=== PATIENT | female | born 1980 | race Caucasian/White ===

== ENCOUNTER 2021-09-22 10:34 | Outpatient (CLI) | payer BC, SELFPAY ==
[2021-09-22 11:17] LABS: Hematocrit 33.8 % (37.0-47.0); Hemoglobin 10.7 g/dL (12.0-15.0); Mean Corpuscular HGB Conc 31.7 g/dl (32-36); Mean Corpuscular Volume 85.1 fl (80-100); Mean Platelet Volume 10.2 fl (7.4-10.4); Platelet Count Result 287 k/mm3 (150-375); Red Blood Count 3.97 M/mm3 (4.2-5.4); White Blood Count 4.6 K/mm3 (4.5-10.0)
== END 2021-09-22 10:35 | disposition home or self-care (01) ==
LOC: ANHSURGERY 10:41
PROVIDERS: PCP Nurse Practitioner Family; Visit Provider Obstetrics & Gynecology
DX: R58 Hemorrhage, not elsewhere classified (principal); Z01.818 Encounter for other preprocedural examination
CPT/HCPCS: 36415; 85027; 86850; 86900; 86901

== ENCOUNTER 2021-09-24 01:24 | Day surgery (SDC) | payer BC, SELFPAY ==
[2021-09-18 17:13] VITALS: BMI 27.4
--- NOTE | 2021-09-18 17:31 | PC.NURSE ---
Report to the Outpatient Waiting Room, entrance under the green pavilion located off [facility], at time 0800 on date 09/24/2021. OR Time: 1000. - You and your visitor will be asked a series of questions to screen for COVID 19 for your protection. - Only one visitor is allowed at this time. - The patient visitor is requested to leave or wait in car when not with patient. - A mask is required within the hospital. Patients may have clear liquids (water, clear carbonated beverages, clear teas, apple juice) until 3 hours prior to surgery with a maximum of 20 ounces. - No food from midnight until time of surgery. Take the following medications with a SIP of water the morning of surgery: Vyvanase. Medications to discontinue per physician __n/a_ Date to take last dose __n/a_ Please no make-up, nail bengali, hair products, perfume, deodorant, or body lotions or powder the day of surgery. No jewelry (including any body piercings) or valuables the day of surgery, leave them at home. Please take a shower or bath the night before, or the morning of, surgery with an antibacterial soap. Wear comfortable, loose fitting clothing. - Jewelry must be removed prior to entering the operating room. Rings and piercings that are not removed may be cut off. - The hospital will not accept responsibility for valuables. - Please leave all valuables, including medications, at home the day of surgery. May bring overnight bag for hospital stay. If you are going home after surgery, a licensed wedding transportation driver must drive you home. - NO public transportation without another adult. - We recommend that an adult stay with you for 24 hours following discharge. - We also recommend that you do not drive, make important decision, drink alcoholic beverages, or take any drugs that were not prescribed by your health care provider for at least 24 hours after your discharge time. Follow any additional instructions given to you from your surgeon. If you or anyone in your household have experienced Covid symptoms in the past week, please notify your surgeon or the nurse liaison at the phone number below for possible testing. Telephone instructions given to patient and asked if any additional questions and then verbalized understanding. Patient advised to call surgeon office or pre surgery nurse liaison [phone] if any additional questions.
--- NOTE | 2021-09-23 04:46 | PM.IMHP ---
H&P: HPI History of Present Illness Date/Time: 09/23/21 04:46 Chief Complaint: Bleeding and pelvic pain with enlarged uterus Narrative: This is a 41-year-old female admitted for hysterectomy robotically and bilateral salpingectomy. She has known enlarged uterus with fibroids by ultrasound and desires permanent repair. Risks and benefits reviewed including exclusive of , aspiration pneumonia, bleeding, transfusion, perforation injury to, bladder, ureters, or other internal organs with need for laparotomy. She received the [employer] handout entitled hysterectomy as well as de [place]ry handout. She had all questions answered asked to proceed [facility] Social History Social History Smoking status: Former smoker Second hand tobacco smoke exposure: No Smoking end date: 12/13/05 Additional smoking assessment comments: 1PPDX 13 YRS Alcohol intake: former Alcohol use details: RECOVERED ALCHOLIC SINCE 2005 Substance use: former Other substance usage details: RECOVERED METHAMPHETAMINE ADDICT SINCE 2005 Spiritual care concerns: No Meds Home Medications and Allergies Home Medications Medication Instructions Recorded Confirmed Type lisdexamfetamine 70 mg capsule 70 mg PO DAILY 09/18/21 09/18/21 History (Vyvanse) tranexamic acid 650 mg tablet 650 mg PO USEASDIRECTD 09/18/21 09/18/21 History trazodone 100 mg tablet 100 mg PO HS 09/18/21 09/18/21 History Allergies Allergy/AdvReac Type Severity Reaction Status Date / Time No Known Allergies Allergy Verified 09/18/21 17:08 Exam GI: Auscultation: normal bowel sounds : External Female Exam: normal external appearance Speculum Exam - Vagina: normal appearance of the vagina and vaginal bleeding Speculum Exam - Cervix: normal appearance of the cervix Bimanual exam- vagina & uterus: enlarged Bimanual Exam- Adnexa, other: normal adnexae Assessment and Plan Assessment and plan (1) Excessive bleeding: Code(s): R58 - Hemorrhage, not elsewhere classified Status: Acute (2) Anemia: Code(s): D64.9 - Anemia, unspecified Status: Acute (3) Uterine fibroid: Code(s): D25.9 - Leiomyoma of uterus, unspecified Status: Acute (4) Dyspareunia: Status: Acute Plan Robotic total vaginal hysterectomy. Bilateral salpingectomy we undertaken if indeed she does have tubes
--- NOTE | 2021-09-23 13:23 | WPDANESEPPF ---
Anes - Initial Pre Proc Eval Procedure: Operation Date: 09/24/21 10:00 Proposed Procedures p Robotic Assisted Total Vaginal Hysterectomy - Eric William MD Date/Time: 09/23/21 13:23 Surgeon: Eric William MD Pre Op Diagnosis: excessive bleeding, anemia Patient Data Age: 41 Gender: F Height: 1.63 m Weight: 72.57 kg Allergies Allergy/AdvReac Type Severity Reaction Status Date / Time No Known Allergies Allergy Verified 09/24/21 08:16 Home Medications Medication Instructions Recorded Confirmed Type lisdexamfetamine 70 mg capsule 70 mg PO DAILY 09/18/21 09/24/21 History (Vyvanse) tranexamic acid 650 mg tablet 650 mg PO USEASDIRECTD 09/18/21 09/24/21 History trazodone 100 mg tablet 100 mg PO HS 09/18/21 09/24/21 History hydrocodone 5 mg-acetaminophen 325 1 tablet PO Q4H PRN pain #30 tabs 09/24/21 Rx mg tablet Patient hx anesthesia problems: none Family hx anesthesia problems: none Results Review: All pre-operative results and documents have been reviewed as part of the pre-operative evaluation. [facility] Past Medical History Medical History (Updated 09/24/21 @ 06:35 by Eric William MD) ADHD Anxiety Depression Fibroid History of gastric ulcer PTSD (post-traumatic stress disorder) Surgical History Surgical History (Updated 09/23/21 @ 13:24 by Omega Pyle DO) History of tubal ligation Social History Social History Smoking status: Former smoker Second hand tobacco smoke exposure: No Smoking end date: 12/13/05 Additional smoking assessment comments: 1PPDX 13 YRS Alcohol intake: former Alcohol use details: RECOVERED ALCHOLIC SINCE 2005 Substance use: former Other substance usage details: RECOVERED METHAMPHETAMINE ADDICT SINCE 2005 Living arrangements: with family Spiritual care concerns: No Anes - Eval Final PreProcedure Day of Procedure 09/23/21 13:23 Patient weight: overweight Heart: regular rate and rhythm Lungs: clear to auscultation Airway: Mallampati scale class II Neurological: alert and oriented Last oral intake: >/= 8 hours ASA classification: III Emergent: no Anesthetic plan: proceed Anesthesia type and monitoring: general ETT and standard monitoring Results Review: All pre-operative results and documents have been reviewed as part of the pre-operative evaluation. Informed Consent: The patient's anesthetic plan and its attendant risks and benefits were discussed with the patient/family/POA. Questions were solicited and answers provided to the satisfaction of the patient/family/POA.
[2021-09-24] VITALS (9 sets, daily range): BP systolic 93–109; BP diastolic 46–71; PULSE 50–78; RESP 8–16; TEMP 36–37; O2SAT 100
--- NOTE | 2021-09-24 06:34 | WPDHPUPDATE1 ---
History and Physical Update Update Date/Time: 09/24/21 06:34 History and Physical has been reviewed, including an updated exam of the patient. There are NO changes in the patient's condition. Risks, benefits, and alternatives have been discussed and questions answered. Patient agrees to proceed with procedure.
[2021-09-24] MEDS: ACETAMINOPHEN 500 MG TABLET 1000 MG PO (08:18)
[2021-09-24] MEDS: LACTATED RINGERS 1,000 ML 30 ML IV CONT ×2 (08:46→11:13)
[2021-09-24] MEDS: KETOROLAC 15 MG/ML VIAL (*BKC) IV PUSH (08:47)
[2021-09-24] MEDS: SCOPOLAMINE 1.5 MG PATCH TRANSDERM (09:33)
[2021-09-24] MEDS: ceFAZolin 2 GM/D5W 50 ML 2 GM/50 ML BAG IVPB (09:38)
--- NOTE | 2021-09-24 10:50 | W.PM.PROC2 ---
Procedure Note - Detailed Date of Procedure 09/24/21 Pre-op Diagnosis excessive bleeding, anemia Post-op Diagnosis Same Procedure Performed Robotic total vaginal hysterectomy and right salpingectomy Surgeon Eric William MD Anesthesia General Indications Is a 41-year-old female with excessive bleeding resulting in severe anemia Findings Mildly enlarged uterus. Absent left ovary and tube. Status post right partial salpingectomy on the right normal-appearing right ovary Description of Procedure The patient was prepped draped in normal sterile fashion placed in the dorsal lithotomy position. Under excellent general trach anesthesia weighted speculum placed posterior fornix vagina. Anterior lip of the cervix grasped with single-tooth tenaculum uterus sounded to 8cm. Serial dilatation with fragmented dilators performed. This was followed by passage of the 8. ENEIDA and the number at 3 cold cup. Next the 16 [place] catheter placed in the bladder draining clear urine. The weighted speculum and single-tooth removed. The gloves were changed. A supraumbilical incision made the Veress needle passed in the abdomen. Abdomen filled with CO2 gas [id number]. The 8mm trocar advanced in the abdomen. Downside visualized no injury seen. Patient placed in Trendelenburg and right left lateral quadrant incisions made. 8mm trocars advanced under direct visualization assuring injury. Right upper quadrant incision made the 8mm trocar advanced under direct visualization assuring no injury. The robot was docked. Attention was turned to the certified genetic counselor. The left adnexa was noted to be absent. There was a portion of right fallopian tube which was sharply dissected off of the ovarian complex and passed off through the right upper quadrant incision. The left utero ovarian ligament was clamped, burned, cut. The round ligament on the left was clamped, burned, cut. Anteriorly a bladder flap was formed by sharply dissecting the peritoneum and reflecting the bladder caudally away from the cervix and uterus to the opposite round ligament was clamped, burned, cut. The left utero-ovarian ligament was skeletonized. This was then clamped, burned, cut. The this was brought to the level of previously cut round ligament. The cardinal broad ligaments on the right were then serially skeletonized hugging the cervix and uterus clamping burning cutting until the uterine vessels could be seen on the right. These were individually clamped, burned, cut. When the uterine vessels were seen they were individually clamped burned and cut. In like fashion the cardinal broad ligaments on the left were serially skeletonized clamped, burned, cut and brought down the lateral edge of the uterus and cervix until the uterine vessels could be seen on the left. These were individually clamped, burned, cut. Excellent blanching of the uterus was seen in colpotomy incision was made. Cervix and uterus removed through the vagina. The pedicles appeared dry. Vagina was then closed with continuous running 0V lock from lateral edge to lateral edge back to the midline. Irrigation undertaken until clear and hemostasis was assured. The robot was undocked. The gas removed from the abdomen. The incisions closed with 4 Monocryl and glue. The patient was awakened and went to recovery in satisfactory condition. All sponge, needle, instrument counts were correct. There were no immediate complications Estimated Blood Loss 25 Drains No Packing No Pathology Yes Complications No immediate complications Condition Stable Disposition PACU
[2021-09-24] MEDS: fentaNYL CITRATE INJ (*CRX) 100 MCG/2 ML VIAL 25 MCG IV PUSH ×4 (11:29→12:00)
--- NOTE | 2021-09-24 12:20 | ADMGEN ---
This patient, [place], was admitted to OB 2nd Floor Room 279-00. Patient oriented to hospital policies and general routines including ID bracelet, bed and alarms, visiting hours, pain management, procedures, bathroom and other care routines, personal items, smoking policy, room service/diet, and visiting hours. Information on how to activate the Rapid Response Team has been discussed. Patient/Family are encouraged to report perceived risks to care and to ask questions if they do not understand what they are told or what they should do.
[2021-09-24] MEDS: KETOROLAC 30 MG/ML VIAL (*BKC) IV PUSH ×2 (12:56→20:32)
[2021-09-24] MEDS: DEXTROSE 5%/LACTATED RINGERS 1,000 ML 125 ML IV CONT (12:57)
[2021-09-24] MEDS: ALPRAZolam (*CRX) 0.25 MG TABLET PO (13:38)
[2021-09-24] MEDS: HYDROcodone/acetaminophen (*CRX) 5-325 MG TABLET 1 TAB PO ×2 (14:35→17:58)
[2021-09-24] MEDS: SIMETHICONE 80 MG TAB.CHEW PO (16:38)
[2021-09-24] MEDS: DOCUSATE SODIUM 100 MG CAPSULE PO (16:38)
[2021-09-24] MEDS: traZODone HCL 50 MG TABLET 200 MG PO (20:32)
[2021-09-25 00:20] VITALS: BP 100/58; PULSE 59; RESP 16; TEMP 36.8
[2021-09-25] MEDS: IBUPROFEN 600 MG TABLET PO ×2 (03:47→11:08)
[2021-09-25] MEDS: HYDROcodone/acetaminophen (*CRX) 5-325 MG TABLET 1 TAB PO ×3 (03:47→12:23)
[2021-09-25 04:00] VITALS: BP 99/59; PULSE 55; RESP 18; TEMP 37.1
[2021-09-25 05:11] LABS: Basophils Percent Auto 0.3 % (0.2-1.2); Eosinophils Percent Auto 0.3 % (0-4.4); Hematocrit 27.7 % (37.0-47.0); Immature Granulocyte Absolute 0.02 K/mm3 (0.00-0.031); Immature Granulocyte Percent A 0.3 % (0-0.5); Lymphocytes Absolute Auto 1.49 K/mm3 (0.9-3.2); Lymphocytes Percent Auto 20.3 % (18.3-44.2); Mean Corpuscular HGB Conc 32.5 g/dl (32-36); Mean Corpuscular Hemoglobin 27.5 pg (26-34); Mean Corpuscular Volume 84.7 fl (80-100); Mean Platelet Volume 11.1 fl (7.4-10.4); Monocytes Absolute Auto 0.6 K/mm3 (0.1-0.6); Monocytes Percent Auto 8.6 % (2.6-8.5); Neutrophils Absolute Auto 5.2 K/mm3 (1.3-6.7); Neutrophils Percent Auto 70.2 % (45.5-73.1); Platelet Count Result 248 k/mm3 (150-375); Red Blood Count 3.27 M/mm3 (4.2-5.4); White Blood Count 7.3 K/mm3 (4.5-10.0)
--- NOTE | 2021-09-25 06:12 | PM.GYNPNOP ---
RACE AND [employer]ORTS BOOK WRITER - A/P Assessment and plan (1) Dyspareunia: Status: Acute (2) Uterine fibroid: Code(s): D25.9 - Leiomyoma of uterus, unspecified Status: Acute (3) Anemia: Code(s): D64.9 - Anemia, unspecified Status: Acute (4) Excessive bleeding: Code(s): R58 - Hemorrhage, not elsewhere classified Status: Acute Plan home. Follow up in 2 weeks Postoperative Procedures: Procedures Operation Date: 09/24/21 10:00 Actual Procedure Side Surgeon p Robotic Assisted Total Vaginal Hysterectomy, Right Salpingectomy Eric William MD Postoperative day: 1 Time Spent With Patient Time: Total time spent is greater than 50% in coordination of care (as documented) at patient's floor/unit and/or counseling patient: Time with patient: less than 15 minutes R[employer] AND [employer]OR[employer] BOOK WRITER- PN:Subj Post-Op Subjective Date/time seen: 09/25/21 06:12 Subjective: patient reports feeling better, patient has no complaints, patient desires discharge and pain is well controlled R[employer]OR[employer] BOOK WRITER - PN: Obj Data Vital Signs Vital Signs: Vital Signs - 24 hr 09/24/21 08:27 09/24/21 11:13 09/24/21 11:25 Temperature 97.3 F L 96.8 F L Pulse Rate 67 78 52 L Respiratory Rate 16 14 9 L Blood Pressure 93/66 L 109/55 L 102/68 Pulse Oximetry 100 100 100 Oxygen Delivery Room Air Simple Face Mask Simple Face Mask Oxygen Flow Rate 8 8 09/24/21 11:40 09/24/21 11:55 09/24/21 12:08 Temperature 98.6 F Pulse Rate 54 L 53 L 50 L Respiratory Rate 10 L 11 L 8 L Blood Pressure 101/71 99/46 L 99/71 L Pulse Oximetry 100 100 100 Oxygen Delivery Room Air Room Air Room Air Oxygen Flow Rate 09/24/21 12:30 09/24/21 12:50 09/24/21 16:40 Temperature 97.8 F 98.3 F Pulse Rate 52 L 73 Respiratory Rate 16 16 Blood Pressure 101/61 101/66 Pulse Oximetry 100 100 Oxygen Delivery Room Air Oxygen Flow Rate 09/24/21 19:05 09/24/21 19:05 09/25/21 00:20 Temperature 98.6 F 98.2 F Pulse Rate 69 59 L Respiratory Rate 16 16 Blood Pressure 98/60 L 100/58 L Pulse Oximetry Oxygen Delivery Room Air Oxygen Flow Rate 09/25/21 00:20 09/25/21 04:00 09/25/21 04:00 Temperature 98.8 F Pulse Rate 55 L Respiratory Rate 18 Blood Pressure 99/59 L Pulse Oximetry Oxygen Delivery Room Air Room Air Oxygen Flow Rate Intake/Output Intake/Output: Intake & Output 09/22/21 09/23/21 09/24/21 09/25/21 23:59 23:59 23:59 23:59 Intake Total 6150 Output Total 3710 Balance 2440 Meds/Results Medications: Active Medications Generic Name Dose Route Start Last Admin Trade Name Freq PRN Reason Stop Dose Admin Hydrocodone Bitart/Acetaminophen 1 tab 09/24/21 12:13 09/25/21 03:47 Hydrocodone/Acetaminophen (*Crx) 5-325 Mg Tablet PO 1 tab Q3H PRN Administration Pain Rated 5 or Less Hydrocodone Bitart/Acetaminophen 1 tab 09/24/21 12:13 Hydrocodone/Acetaminophen (*Crx) 10-325 Mg Tablet PO Q3H PRN Pain Rated 6 or Greater Alprazolam 0.25 mg 09/24/21 13:24 09/24/21 13:38 Alprazolam (*Crx) 0.25 Mg Tablet PO 0.25 mg Q6HR PRN Administration Anxiety Docusate Sodium 100 mg 09/24/21 17:00 09/24/21 16:38 Docusate Sodium 100 Mg Capsule PO 100 mg BID PAOLA Administration Enoxaparin Sodium 40 mg 09/25/21 09:00 Enoxaparin 40 Mg/0.4 Ml Syringe SUB-Q DAILY PAOLA Ibuprofen 600 mg 09/24/21 12:13 09/25/21 03:47 Ibuprofen 600 Mg Tablet PO 600 mg Q6H PRN Administration Cramping Ketorolac Tromethamine 30 mg 09/24/21 12:13 09/24/21 20:32 Ketorolac 30 Mg/Ml Vial (*Bkc) IV PUSH 09/29/21 12:12 30 mg Q6H PRN Administration Pain Rated 4-6 Naloxone HCl 0.1 mg 09/24/21 12:13 Naloxone Hcl 0.4 Mg/Ml Vial IV PUSH Q2M PRN Respiratory rate less than 10 Ondansetron HCl 4 mg 09/24/21 12:13 Ondansetron Inj 4 Mg/2 Ml Vial IV PUSH Q6H PRN Nausea And Vomiting Simethicone 80 mg 09/24/21 12:13 09/24/21 16:38
--- NOTE | 2021-09-25 06:14 | PM.DS ---
DS: Admitting Diagnosis Discharge Date 09/25/2021 Admitting Diagnosis vaginal bleeding / uterine fibroids /anemia DS: Discharge Diagnosis Discharge Diagnosis (1) Dyspareunia: Status: Acute (2) Uterine fibroid: Code(s): D25.9 - Leiomyoma of uterus, unspecified Status: Acute (3) Anemia: Code(s): D64.9 - Anemia, unspecified Status: Acute (4) Excessive bleeding: Code(s): R58 - Hemorrhage, not elsewhere classified Status: Acute Plan home follow-up 2 weeks DS: Summary Hospital Course Reason for hospitalization: admitted for hysterectomy and bilateral salpingectomy secondary to vaginal bleeding and anemia Hospital Course: patient underwent a robotic hysterectomy and bilateral salpingectomy. Procedure was unremarkable. Hospital course was unremarkable and she remained afebrile. She was up, ambulating, eating regular diet, voiding without difficulty, and generally without complaints. Time Spent with Patient Time attestation: Total time spent providing and/or coordinating discharge services: DS: Data Data Completed and Pending Pending studies at discharge: Pending at discharge 09/24/21 10:40 Surgical [PTH] Routine Labs on day of discharge: Labs from last 24 hours 09/25/21 03:55 WBC 7.3 RBC 3.27 L Hgb 9.0 L Hct 27.7 L MCV 84.7 MCH 27.5 MCHC 32.5 RDW 13.0 Plt Count 248 MPV 11.1 H Immature Gran % (Auto) 0.3 Neut % (Auto) 70.2 Lymph % (Auto) 20.3 [place] % (Auto) 8.6 H Eos % (Auto) 0.3 Baso % (Auto) 0.3 Lymph # (Auto) 1.49 [place] # (Auto) 0.6 Eos # (Auto) 0.0 Baso # (Auto) 0.0 Abs Immat Gran (auto) 0.02 Absolute Neuts (auto) 5.2 Absolute Nucleated RBC 0.0 Nucleated RBC % 0.0 Discharge Plan Discharge Patient Disposition: Home, Self-Care Stand Alone Forms: General Discharge Instructions Follow-up/Referrals: Eric Vera MD [Physician] - Discharge Medications: New hydrocodone-acetaminophen 5-325 mg tablet 1 tablet PO Q4H PRN (Reason: pain) Qty: 30 0RF Continued trazodone 100 mg tablet 100 mg PO HS Vyvanse 70 mg capsule 70 mg PO DAILY tranexamic acid 650 mg tablet 650 mg PO USEASDIRECTD Rx Instructions: TID FOR 3-5 DAYS DURING PERIOD
[2021-09-25] MEDS: ENOXAPARIN 40 MG/0.4 ML SYRINGE SUB-Q (08:32)
[2021-09-25] MEDS: DOCUSATE SODIUM 100 MG CAPSULE PO (08:33)
[2021-09-25 08:40] VITALS: BP 86/51; PULSE 60; RESP 16; TEMP 37.2; O2SAT 98
[2021-09-25 10:40] VITALS: BP 92/52
--- NOTE | 2021-09-25 12:22 | WPDANESPN ---
Anes - Prog Note Post-Op Date/Time: 09/25/21 12:22 Cardiovascular status: normal Respiratory status: normal Airway patency: baseline Mental status: baseline Post-Op hydration status: normal Vital Signs: Last Vital Signs Temp 98.9 F 09/25/21 08:40 Pulse 60 09/25/21 08:40 Resp 16 09/25/21 08:40 BP 92/52 L 09/25/21 10:40 Pulse Ox 98 09/25/21 08:40 O2 Del Method Room Air 09/25/21 08:30 O2 Flow Rate 8 09/24/21 11:25 Pain Score (VAS): 4 I/O: Intake & Output 09/24/21 09/25/21 09/25/21 23:59 07:59 15:59 Intake Total 3600 Output Total 3100 Balance 500 Laboratory Tests 09/25/21 03:55 09/25/21 03:55 WBC 7.3 RBC 3.27 L Hgb 9.0 L Hct 27.7 L MCV 84.7 MCH 27.5 MCHC 32.5 RDW 13.0 Plt Count 248 MPV 11.1 H Immature Gran % (Auto) 0.3 Neut % (Auto) 70.2 Lymph % (Auto) 20.3 [place] % (Auto) 8.6 H Eos % (Auto) 0.3 Baso % (Auto) 0.3 Lymph # (Auto) 1.49 [place] # (Auto) 0.6 Eos # (Auto) 0.0 Baso # (Auto) 0.0 Abs Immat Gran (auto) 0.02 Absolute Neuts (auto) 5.2 Absolute Nucleated RBC 0.0 Nucleated RBC % 0.0 Patient Feedback: Patient satisfied with anesthetic care. Pt awaiting discharge at time of visit.
== END 2021-09-25 12:26 | disposition home or self-care (01) ==
LOC: ANHSURGERY 08:08 → ANHOB2 12:14
PROVIDERS: PCP Nurse Practitioner Family; Visit Provider Obstetrics & Gynecology
PROC: (CPT 58552; principal; 2021-09-24 10:00)
DX: N93.9 Abnormal uterine and vaginal bleeding, unspecified (principal); D64.9 Anemia, unspecified; N80.0 Endometriosis of uterus; N83.8 Other noninflammatory disorders of ovary, fallopian tube and broad ligament; N87.9 Dysplasia of cervix uteri, unspecified; D25.1 Intramural leiomyoma of uterus; N94.10 Unspecified dyspareunia; F90.9 Attention-deficit hyperactivity disorder, unspecified type; F43.10 Post-traumatic stress disorder, unspecified; F41.9 Anxiety disorder, unspecified; F32.A Depression, unspecified; Z87.11 Personal history of peptic ulcer disease; Z87.891 Personal history of nicotine dependence; F10.21 Alcohol dependence, in remission
CPT/HCPCS: 58552; S2900; 36415; 85025; 88307; 99199; A9270; J0690; J1100; J1650; J1885; J2250; J2405; J2704; J3010; J7120; J7121